=== PATIENT | male | born 1950 | race Caucasian/White ===

== ENCOUNTER 2021-02-20 12:20 | Outpatient (CLI) | payer MEDICARE, OTHER | END 2021-02-20 23:59 | disposition home or self-care (01) | LOC: COV 12:20 | PROVIDERS: ATTEND Ophthalmology | DX: Z01.812 Encounter for preprocedural laboratory examination (principal); H25.812 Combined forms of age-related cataract, left eye; Z20.822 Contact with and (suspected) exposure to COVID-19 ==

== ENCOUNTER 2021-02-23 07:55 | Day surgery (SDC) | payer MEDICARE, OTHER ==
[~2021-02-23 07:55] MED LIST: CYCLOPENTOLATE 1% OPHTH DROPS 2 ML ONE; KETOROLAC 0.45% OPHTH DROPS ONE; PHENYLEPHRINE 2.5% OPHTH 2 ML DROPS ONE; PROPARACAINE 0.5% OPHTH DROPS 15 ML ONE
[2021-02-23] MEDS ORDERED: LACTATED RINGERS 500 ML IV ONE (08:22)
--- NOTE | 2021-02-23 09:05 | ANESTHESIA ---
Pre-Anesthesia VS, & Labs - Diagnosis left eye cataract - Procedure left CATIOL Vital Signs: Temp Pulse Resp BP Pulse Ox 36.2 C L 51 L 18 118/68 100 02/23/21 08:23 02/23/21 08:23 02/23/21 08:23 02/23/21 08:23 02/23/21 08:23 Height: 5 ft 8 in Weight (kg): 69.1 kg Body Mass Index: 23.1 BMI Classification: Healthy weight - NPO >8 hours - Lab Results Lab results reviewed: Yes Home Medications and Allergies Allergies/Adverse Reactions: Allergies Allergy/AdvReac Type Severity Reaction Status Date / Time No Known Drug Allergies Allergy Verified 02/22/21 14:52 Anes History & Medical History - Anesthetic History Anesthesia Complications: reports: No previous complications Family history of Anesthesia Complications: Denies Family history of Malignant Hyperthermia: Denies - Medical History Cardiovascular: reports: None Pulmonary: reports: Sleep apnea Urinary: reports: Benign prostate hypertrophy - Surgical History Urologic: reports: Prostatic surgery Exam General: Alert, Oriented x3, Cooperative, No acute distress Dental: WNL Mouth Openin Fingerbreadth Neck Mobility: Normal Mallampati classification: II Respiratory: Lungs clear, Normal breath sounds, No respiratory distress, No accessory muscle use Cardiovascular: Regular rate, Normal S1, Normal S2, No murmurs Plan Anesthesia Type: MAC Consent for Procedure(s) Verified and Reviewed: Yes Code Status: Attempt Resuscitation ASA classification: 2-Mild systemic disease Is this case an emergency?: No
[2021-02-23] MEDS ORDERED: MIDAZOLAM 2 MG/2 ML VIAL ONE (09:12)
[2021-02-23] MEDS ORDERED: TIMOLOL 0.5% OPHTH DROPS OPTH ONE (09:36)
[2021-02-23] MEDS ORDERED: EPINEPHrine 1 MG/ML AMP IR ONE (09:36)
[2021-02-23] MEDS ORDERED: BSS/LIDOCAINE/EPINEPHRINE 1 ML SYRINGE IO ONE (09:36)
[2021-02-23] MEDS ORDERED: CHONDR SULF/HYALURONATE SYRINGE IO ONE (09:36)
[2021-02-23] MEDS ORDERED: TRIAMCIN/MOXIFLOX OPHTHALMIC 0.6 ML VIAL IO ONE ×2 (09:36→13:05)
[2021-02-23] MEDS ORDERED: BRIMONIDINE 0.2% OPHTH DROPS 5 ML OPTH ONE (09:36)
[2021-02-23] MEDS ORDERED: PROPARACAINE 0.5% OPHTH DROPS 15 ML EACHEYE ONE (09:36)
[2021-02-23] MEDS ORDERED: VANCOMYCIN OPHTHALMI 8MG/0.8ML 8 MG/0.8 ML SYRINGE IO ONE ×2 (09:37→13:05)
[2021-02-23] MEDS ORDERED: LACTATED RINGERS 400 ML IV ONE (09:55)
[2021-02-23 10:10] VITALS: BP 122/75
--- NOTE | 2021-02-23 10:22 | ANESTHESIA POST OP EVALUATION ---
Anesthesia Post Eval - Post Anesthesia Eval Vitals: Last Vital Signs Temp 36.2 C L 02/23/21 10:04 Pulse 70 02/23/21 10:04 Resp 16 02/23/21 10:04 BP 122/75 02/23/21 10:04 Pulse Ox 100 02/23/21 10:04 CV Function Including HR & BP: Stable Pain Control: Satisfactory Nausea & Vomiting: Negative Mental Status: Baseline Respiratory Status: Airway Patent Hydration Status: Satisfactory Anesthesia Complications: None
--- NOTE | 2021-02-23 12:18 | OPERATIVE REPORT ---
Operative Report - Other Other Information/Narrative: Date of Surgery: 02/23/21 Preop Dx: Visually significant cataract left eye. This was the first cataract surgery. Postop Dx: Same Procedure: Phacoemulsification with posterior chamber intraocular lens implant left eye Surgeon: Dr. Ángel Díaz Anesthesia: Monitored anesthesia care Complications: None Operative Indications: This is a 70-year-old M with progressive vision loss in the left eye due to 3+ nuclear sclerotic and vacuolar cataract. Best corrected visual acuity was 20/30 with glare to 20/100 vision in the left eye. Indications for surgery were: - Overall decrease in vision - Difficulty seeing words, closed captions, or game scores on TV - Difficulty seeing street signs - Difficulty driving at night because of headlights from other vehicles - Difficulty with glare or bright lights in any situation The patient was consented at length concerning the risks and benefits of cataract surgery after which the patient expressed a desire to proceed with surgery. Operative Procedure: The patient was taken into OR#3 and placed under monitored anesthesia care. A surgical time-out was conducted confirming correct patient, correct procedure, and correct surgical site. The patient was given topical anesthesia and then prepped and draped in the usual sterile fashion. The eye was entered at the 6 and 3 oclock positions. Intracameral Shugarcaine was injected into the anterior chamber followed by a dispersive viscoelastic. A continuous-tear curvilinear capsulorhexis was performed. The nucleus was hydrodissected and phacoemulsified. The cortex was evacuated using automated infusion and aspiration. A cohesive viscoelastic was injected into the capsular bag and a 18.5 diopter intraocular lens was inserted into the bag. Infusion and aspiration were used to evacuate the viscoelastic materials from the eye. The wounds were hydrated and the eye inflated to physiologic pressure using balanced salt solution. Approximately 0.25ml of a mixture of triamcinolone and moxifloxacin was injected trans-sclerally into the vitreous in the inferotemporal quadrant using a 30 gauge cannula. An additional 0.55ml of a mixture of triamcinolone, moxifloxacin, and vancomycin was injected subconjunctivally in the superior quadrant for infection and inflammation prophylaxis. Wound integrity was checked with Weck-Jolene sponges. The patient was taken from the operating room in good condition and given post-op instructions.
--- NOTE | 2021-02-23 12:21 | OPERATIVE REPORT ---
Operative Report - Other Other Information/Narrative: Date of Surgery: 02/23/21 Preop Dx: Visually significant cataract right eye. Cataract surgery was performed in the left eye on 01/12/21. Postop Dx: Same Procedure: Phacoemulsification with posterior chamber intraocular lens implant right eye Surgeon: Dr. Ángel Díaz Anesthesia: Monitored anesthesia care Complications: None Operative Indications: This is a 70-year-old M with progressive vision loss in the right eye due to 4+ nuclear sclerotic and 1+ posterior subcapsular cataract. Best corrected visual acuity was 20/50 with glare to 20/80 vision in the right eye. Indications for surgery were: - Overall decrease in vision - Difficulty seeing words on a computer screen - Difficulty reading - Difficulty seeing words, closed captions, or game scores on TV - Difficulty driving at night because of headlights from other vehicles - Difficulty with glare or bright lights in any situation The patient was consented at length concerning the risks and benefits of cataract surgery after which the patient expressed a desire to proceed with surgery. Operative Procedure: The patient was taken into OR#3 and placed under monitored anesthesia care. A surgical time-out was conducted confirming correct patient, correct procedure, and correct surgical site. The patient was given topical anesthesia and then prepped and draped in the usual sterile fashion. The eye was entered at the 6 and 3 oclock positions. Intracameral Shugarcaine was injected into the anterior chamber followed by a dispersive viscoelastic. A continuous-tear curvilinear capsulorhexis was performed. The nucleus was hydrodissected and phacoemulsified. The cortex was evacuated using automated infusion and aspiration. A cohesive viscoelastic was injected into the capsular bag and a 20.5 diopter intraocular lens was inserted into the bag. Infusion and aspiration were used to evacuate the viscoelastic materials from the eye. The wounds were hydrated and the eye inflated to physiologic pressure using balanced salt solution. Approximately 0.25ml of a mixture of triamcinolone and moxifloxacin was injected trans-sclerally into the vitreous in the inferotemporal quadrant using a 30 gauge cannula. An additional 0.55ml of a mixture of triamcinolone, moxifloxacin, and vancomycin was injected subconjunctivally in the superior quadrant for infection and inflammation prophylaxis. Wound integrity was checked with Weck-Jolene sponges. The patient was taken from the operating room in good condition and given post-op instructions.
[2021-02-23] MEDS ORDERED: TIMOLOL 0.5% OPHTH DROPS ONE (13:05)
[2021-02-23] MEDS ORDERED: BRIMONIDINE 0.2% OPHTH DROPS 5 ML ONE (13:05)
[2021-02-23] MEDS ORDERED: EPINEPHrine 1 MG/ML AMP ONE (13:05)
[2021-02-23] MEDS ORDERED: BSS/LIDOCAINE/EPINEPHRINE 1 ML SYRINGE ONE (13:05)
== END 2021-02-23 07:56 | disposition home or self-care (01) ==
LOC: SDS 07:55
PROVIDERS: ATTEND Ophthalmology
DX: H25.812 Combined forms of age-related cataract, left eye (principal); Z87.891 Personal history of nicotine dependence; G47.33 Obstructive sleep apnea (adult) (pediatric)
CPT/HCPCS: 66984; A9270; J3490; J7120

== ENCOUNTER 2021-03-23 07:45 | Day surgery (SDC) | payer MEDICARE, OTHER ==
[2021-03-23] MEDS ORDERED: TRIAMCIN/MOXIFLOX OPHTHALMIC 0.6 ML VIAL IO ONE ×2 (08:06→09:12)
[2021-03-23] MEDS ORDERED: EPINEPHrine 1 MG/ML AMP ONE (08:06)
[2021-03-23] MEDS ORDERED: BSS/LIDOCAINE/EPINEPHRINE 1 ML SYRINGE ONE (08:07)
[2021-03-23] MEDS ORDERED: BRIMONIDINE 0.2% OPHTH DROPS 5 ML ONE (08:07)
[2021-03-23] MEDS ORDERED: VANCOMYCIN OPHTHALMI 8MG/0.8ML 8 MG/0.8 ML SYRINGE IO ONE ×2 (08:07→09:12)
[2021-03-23] MEDS ORDERED: TIMOLOL 0.5% OPHTH DROPS ONE (08:07)
[2021-03-23] MEDS ORDERED: LACTATED RINGERS 1,000 ML IV ONE ×2 (08:35→09:24)
--- NOTE | 2021-03-23 08:43 | ANESTHESIA ---
Pre-Anesthesia VS, & Labs - Diagnosis R senile combined cataract - Procedure R cataract extraction w/IOL Vital Signs: Temp Pulse Resp BP Pulse Ox 36.5 C 45 L 18 103/60 99 03/23/21 08:04 03/23/21 08:04 03/23/21 08:04 03/23/21 08:04 03/23/21 08:04 Height: 5 ft 8 in Weight (kg): 68.4 kg Body Mass Index: 22.9 BMI Classification: Healthy weight - NPO >8 hours - Lab Results Lab results reviewed: Yes Home Medications and Allergies Allergies/Adverse Reactions: Allergies Allergy/AdvReac Type Severity Reaction Status Date / Time No Known Drug Allergies Allergy Verified 02/22/21 14:52 Anes History & Medical History - Anesthetic History Anesthesia Complications: reports: No previous complications Family history of Anesthesia Complications: Denies Family history of Malignant Hyperthermia: Denies - Medical History Cardiovascular: reports: None - Surgical History General: reports: Colonoscopy Eyes Ears Nose Throat (EENT): reports: Cataracts, Tonsil/Adenoidectomy Urologic: reports: Prostatic surgery Exam General: Alert, Oriented x3, Cooperative Dental: WNL Mouth Openin Fingerbreadth Neck Mobility: Normal Mallampati classification: II Thyromental Distance: 4-6 cm Respiratory: Lungs clear, Normal breath sounds Cardiovascular: Regular rate Neurological: Normal speech Mental/Cognitive Status: Alert/Oriented X3, Normal for patient Cognitive Status: Within normal limits Plan Anesthesia Type: MAC Consent for Procedure(s) Verified and Reviewed: Yes Code Status: Attempt Resuscitation ASA classification: 2-Mild systemic disease Is this case an emergency?: No
[2021-03-23] MEDS ORDERED: MIDAZOLAM 2 MG/2 ML VIAL ONE (09:00)
[2021-03-23] MEDS ORDERED: BRIMONIDINE 0.2% OPHTH DROPS 5 ML OPTH ONE (09:11)
[2021-03-23] MEDS ORDERED: TIMOLOL 0.5% OPHTH DROPS OPTH ONE (09:11)
[2021-03-23] MEDS ORDERED: EPINEPHrine 1 MG/ML AMP IR ONE (09:11)
[2021-03-23] MEDS ORDERED: CHONDR SULF/HYALURONATE SYRINGE IO ONE (09:11)
[2021-03-23] MEDS ORDERED: BSS/LIDOCAINE/EPINEPHRINE 1 ML SYRINGE IO ONE (09:12)
[2021-03-23] MEDS ORDERED: PROPARACAINE 0.5% OPHTH DROPS 15 ML EACHEYE ONE (09:12)
[2021-03-23 09:44] VITALS: BP 102/65
--- NOTE | 2021-03-23 09:47 | ANESTHESIA POST OP EVALUATION ---
Anesthesia Post Eval - Post Anesthesia Eval Vitals: Last Vital Signs Temp 36.0 C L 03/23/21 09:43 Pulse 70 03/23/21 09:43 Resp 16 03/23/21 09:43 BP 102/65 03/23/21 09:43 Pulse Ox 99 03/23/21 09:43 CV Function Including HR & BP: Stable Pain Control: Satisfactory Nausea & Vomiting: Negative Mental Status: Baseline Respiratory Status: Airway Patent Hydration Status: Satisfactory Anesthesia Complications: None
--- NOTE | 2021-03-23 11:31 | OPERATIVE REPORT ---
Operative Report - Other Other Information/Narrative: Date of Surgery: 03/23/21 Preop Dx: Visually significant cataract right eye. Cataract surgery was performed in the left eye on 02/23/21. Postop Dx: Same Procedure: Phacoemulsification with posterior chamber intraocular lens implant right eye Surgeon: Dr. Ángel Díaz Anesthesia: Monitored anesthesia care Complications: None Operative Indications: This is a 70-year-old M with progressive vision loss in the right eye due to 3+ nuclear sclerotic and trace posterior subcapsular cataract. Best corrected visual acuity was 20/50 with glare to 20/100 vision in the right eye. Indications for surgery were: - Overall decrease in vision - Difficulty seeing street signs The patient was consented at length concerning the risks and benefits of cataract surgery after which the patient expressed a desire to proceed with surgery. Operative Procedure: The patient was taken into OR#3 and placed under monitored anesthesia care. A surgical time-out was conducted confirming correct patient, correct procedure, and correct surgical site. The patient was given topical anesthesia and then prepped and draped in the usual sterile fashion. The eye was entered at the 6 and 3 oclock positions. Intracameral Shugarcaine was injected into the anterior chamber followed by a dispersive viscoelastic. A continuous-tear curvilinear capsulorhexis was performed. The nucleus was hydrodissected and phacoemulsified. The cortex was evacuated using automated infusion and aspiration. A cohesive viscoelastic was injected into the capsular bag and a 19.0 diopter intraocular lens was inserted into the bag. Infusion and aspiration were used to evacuate the viscoelastic materials from the eye. The wounds were hydrated and the eye inflated to physiologic pressure using balanced salt solution. Approximately 0.25ml of a mixture of triamcinolone and moxifloxacin was injected trans-sclerally into the vitreous in the inferotemporal quadrant using a 30 gauge cannula. An additional 0.55ml of a mixture of triamcinolone, moxifloxacin, and vancomycin was injected subconjunctivally in the superior quadrant for infection and inflammation prophylaxis. Wound integrity was checked with Weck-Jolene sponges. The patient was taken from the operating room in good condition and given post-op instructions.
== END 2021-03-23 07:46 | disposition home or self-care (01) ==
LOC: SDS 07:45
PROVIDERS: ATTEND Ophthalmology
DX: H25.811 Combined forms of age-related cataract, right eye (principal); G47.33 Obstructive sleep apnea (adult) (pediatric); Z98.42 Cataract extraction status, left eye; Z87.891 Personal history of nicotine dependence
CPT/HCPCS: 66984; A9270; J3490; J7120

== ENCOUNTER 2021-08-02 09:13 | Emergency (ER) | payer MEDICARE, OTHER ==
--- NOTE | 2021-08-02 09:32 | ED Physician Documentation ---
PD HPI CHEST PAIN - Stated complaint Stated Complaint: CHEST PX/SENT BY - Additional information Additional information: Patient is 70-year-old male referred by primary care for chest pain ongoing x1 day. Chest pain began yesterday. Does endorse for increased physical activity yesterday. States pain is primarily substernal with associated pain down the left arm. Denies episodes of previous pain. Denies any nausea, vomiting, diaphoresis, history hypertension, dyslipidemia, diabetes, relevant smoking history. Denies any recent travel, history of blood clots. Denies any illicit or recreational substance abuse. Does report takes a daily marijuana edible for relaxation. Review of Systems Ten Systems: 10 systems reviewed and negative Constitutional: denies: Fever Eyes: denies: Loss of vision Ears: denies: Loss of hearing Nose: denies: Rhinorrhea / runny nose Cardiac: reports: Chest pain / pressure. denies: Palpitations, Pedal edema, Calf pain Respiratory: denies: Dyspnea, Cough GI: denies: Abdominal Pain, Nausea, Vomiting PD PAST MEDICAL HISTORY - Past Medical History Cardiovascular: None - Past Surgical History General: Colonoscopy HEENT: Cataracts, Tonsil/Adenoidectomy - Allergies Allergies/Adverse Reactions: Allergies Allergy/AdvReac Type Severity Reaction Status Date / Time No Known Drug Allergies Allergy Verified 08/02/21 09:37 PD ED PE NORMAL - General General: Alert and oriented X 3 - HEENT HEENT: Atraumatic, PERRL, EOMI - Neck Neck: Supple, no meningeal sign, No bony TTP, No JVD - Cardiac Cardiac: RRR, No murmur, No gallop, No rub, Strong equal pulses - Respiratory Respiratory: No respiratory distress, Clear bilaterally - Abdomen Abdomen: Normal bowel sounds, Soft - Male Male : Deferred - Rectal Rectal: Deferred - Derm Derm: Normal color - Extremities Extremities: No deformity - Neuro Neuro: Alert and oriented X 3, outreach team member 2-12 intact, No motor deficit, Normal speech - Psych Psych: Normal mood Results - Vitals Vitals: Vital Signs - 24 hr 08/02/21 08/02/21 09:27 12:00 Temperature 36.8 C 36.5 C Heart Rate 60 79 Respiratory 14 24 Rate Blood Pressure 144/90 H 141/75 H O2 Saturation 98 100 Oxygen O2 Source Room air - EKG (time done) 0921 Rate: Rate (enter#) (63) Rhythm: NSR [place]: Normal Intervals: Normal [place], QRS normal. No: Prolonged QT QRS: Normal Ischemia: Normal ST segments Compare to prior EKG: Old EKG unavailable - Labs Labs: Laboratory Tests 08/02/21 08/02/21 08/02/21 09:47 09:47 09:47 WBC 4.8 RBC 4.72 Hgb 15.1 Hct 45.7 MCV 96.8 H MCH 32.0 H MCHC 33.0 RDW 12.5 Plt Count 272 MPV 9.6 Neut # (Auto) 3.0 Lymph # (Auto) 1.0 L [place] # (Auto) 0.4 Eos # (Auto) 0.3 Baso # (Auto) 0.1 Absolute Nucleated RBC 0.00 Nucleated RBC % 0.0 D-Dimer 570.5 H Sodium 136 Potassium 4.3 Chloride 101 Carbon Dioxide 27 Anion Gap 8.0 BUN 12 Creatinine 0.8 Estimated GFR (MDRD) 95 Glucose 90 Calcium 8.9 Total Bilirubin 0.8 AST 25 ALT 20 Alkaline Phosphatase 57 Troponin I High Sens Total Protein 7.3 Albumin 4.0 Globulin 3.3 Albumin/Globulin Ratio 1.2 Lipase 38 08/02/21 08/02/21 09:47 11:02 WBC RBC Hgb Hct MCV MCH MCHC RDW Plt Count MPV Neut # (Auto) Lymph # (Auto) [place] # (Auto) Eos # (Auto) Baso # (Auto) Absolute Nucleated RBC Nucleated RBC % D-Dimer Sodium Potassium Chloride Carbon Dioxide Anion Gap BUN Creatinine Estimated GFR (MDRD) Glucose Calcium Total Bilirubin AST ALT Alkaline Phosphatase Troponin I High Sens 4.1 3.9 Total Protein Albumin Globulin Albumin/Globulin Ratio Lipase PD MEDICAL DECISION MAKING - ED course Complexity details: reviewed results, d/w patient ED course: Is a 70-year-old male presenting to the emergency department with 1 day history of chest pain. Referred by primary care. Afebrile, hemodynamically stable on arrival to the emergency department. Denied any ongoing symptoms in the emergency department. Patient has minimal risk factors for coronary artery disease. Heart score less than 4. EKG as outlined above was negative for indications for acute cardiac ischemia or dysrhythmia. Initial and repeat high- sensitivity troponins were negative. Patient did have a very minimal, likely age-related elevation in D-dimer however I did elect to obtain a CT PE protocol which was negative for any intrathoracic disease. Given his overall well appearance and benign labs I will discharge at this time for follow-up with primary care as needed. Otherwise clear return precautions and follow-up instructions were given prior to discharge. Departure - Departure Disposition: 01 Home, Self Care Clinical Impression: Chest pain Instructions: ED Chest Pain NonCardiac Comments: Thank you for allowing us the opportunity to care for you today at [facility]. All of the labs performed to the emergency department you, your EKG and the CT scan of your chest were all very reassuring. Do not see any indications of injury to your heart or lungs and given that you are otherwise a an extremely healthy individual for your age you do not have many risk factors for coronary artery disease. I do want you to follow-up carefully with your primary care doctor as I do believe you would benefit from some further outpatient testing. If it anytime you have any new or worsening symptoms, including any recurrent or worsening chest pain I want you to return to the emergency department immediately for further evaluation and treatment.
[2021-08-02 09:57] LABS: BASOPHILS # (AUTO) 0.1 10^3/uL (0.0-0.1); EOSINOPHILS # (AUTO) 0.3 10^3/uL (0.0-0.7); EOSINOPHILS % (AUTO) 6.3 %; HCT - HEMATOCRIT 45.7 % (42.0-52.0); HGB - HEMOGLOBIN 15.1 g/dL (14.0-18.0); LYMPHOCYTES % (AUTO) 21.3 %; MEAN CORPUSCULAR VOLUME 96.8 fL (80.0-94.0); MEAN PLATELET VOLUME 9.6 fL (7.4-11.4); MONOCYTES # (AUTO) 0.4 10^3/uL (0.0-1.0); MONOCYTES % (AUTO) 9.2 %; PLT - PLATELET COUNT 272 10^3/uL (130-450); RED BLOOD COUNT 4.72 10^6/uL (4.70-6.10); RED CELL DISTRIBUTION WIDTH 12.5 % (12.0-15.0); WHITE BLOOD COUNT 4.8 x10^3/uL (4.8-10.8)
[2021-08-02 10:17] LABS: ALBUMIN/GLOBULIN RATIO 1.2 (1.0-2.2); BILIRUBIN,TOTAL 0.8 mg/dL (0.2-1.0); CALCIUM 8.9 mg/dL (8.5-10.3); CREATININE 0.8 mg/dL (0.6-1.2); POTASSIUM 4.3 mmol/L (3.5-5.0); TOTAL PROTEIN 7.3 g/dL (6.7-8.2)
[2021-08-02] MEDS ORDERED: SODIUM CHLORIDE 0.9% 1,000 ML IV STA (10:37)
[2021-08-02] MEDS ORDERED: IOVERSOL 320 100 ML VIAL IVP ONE ×2 (10:58→18:36)
--- NOTE | 2021-08-02 12:21 | CT Report ---
PROCEDURE: ANGIO CHEST W/WO INDICATIONS: Rule out PE CONTRAST: IV CONTRAST: Optiray 320 ml: 80 PO CONTRAST: *NO PO CONTRAST TECHNIQUE: After the administration of intravenous contrast, 2 mm axial images were acquired from the pulmonary apices to the posterior costophrenic angles during the arterial phase. In addition, 1 mm lung kernel and 5 mm soft tissue kernel reconstructions were performed. 3-dimensional coronal oblique maximum int ensity projection (MIP) reformats, 8 mm axial MIP, and 5 mm coronal and sagittal MPR reformats were t hen performed through the thorax. For radiation dose reduction, the following was used: automated exp osure control, adjustment of mA and/or kV according to patient size. COMPARISON: None. FINDINGS: Image quality: Respiratory motion is seen at the lung bases that could obscure a small peripheral pu lmonary embolus. Pulmonary arteries: Pulmonary arteries are normal in size, and demonstrate no intraluminal filling d efects to suggest central pulmonary embolism. Lungs and pleura: There is mild biapical pleural-parenchymal scarring. A nonspecific 3 mm nodule is s een in the left upper lobe (98/6) that is most likely benign given its size. No acute pulmonary conso lidation is seen. No pleural effusions or pneumothorax. Central and peripheral airways are patent. Mediastinum: Heart size is normal, without pericardial effusion. No mediastinal or hilar adenopathy . Thoracic aorta is normal in caliber and enhancement. Esophagus is normal in caliber, without hiat al hernia. Bones and chest wall: No suspicious bony lesions. Ribs and thoracic spine appear intact throughout. No axillary or supraclavicular adenopathy. The thyroid is normal in size. Abdomen: Visualized upper abdominal solid organs appear normal in the early arterial phase of enhanc ement. IMPRESSION: No acute pulmonary embolus. No acute abnormality is seen in the chest. Reviewed by: Aram Islas MD on 08/02/2021 12:20 PM PST Approved by: Aram Islas MD on 08/02/2021 12:20 PM PST Station ID: [id number]
[2021-08-02 12:33] VITALS: BP 141/75
== END 2021-08-02 13:00 | disposition home or self-care (01) ==
LOC: ED 09:13
DX: R07.9 Chest pain, unspecified (principal)
CPT/HCPCS: 36415; 71275; 80053; 83690; 84484; 85025; 85379; 93005; 99282; 99284; Q9967

== ENCOUNTER 2021-11-28 07:51 | Outpatient (CLI) | payer MEDICARE, OTHER ==
--- NOTE | 2021-11-28 08:32 | CARDIAC PROCEDURE NOTE ---
Stress Test Report Service Date: 11/28/21 Service Time: 08:00 Ordering Provider: Pam Castillo NP Indication for Test: Assess chest discomfort. Significant Medical History: Rey is referred for an exercise treadmill test today to assess intermittent episodes of chest pain, possibly dating as far back as 2 years. [facility] after reporting several hours of chest discomfort to his primary provider who referred him in. At that time he endorsed discomfort in the setting of increased psychosocial stress and possibly increased physical activity, with some radiation to his left arm, th ough he denied increased dyspnea, diaphoresis or GI upset. At that Emergency Department visit his EKG did not appear ischemic and troponins were negative. A D-dimer was elevated and a CT angio of the chest was negative for pulmonary embolism. Since that evaluation he has remained in his state of good health with usual physical activity. He walks 4 to 5 miles every day on a route that includes some hills, which do not pose a significant challenge. He lives on a 13 [place] property that he maintains in all aspects, without a decrement in his ability to be so active. He cannot recall having chest pain over the last several weeks, though does remember having it intermittently in the past. Cardiac Risk Factors: Positive for hyperlipidemia (untreated, current values not available) as well as history of mild atherosclerosis in his mother and heart failure in his father. Negative for hypertension, diabetes and significant tobacco smoking history Type of Stress Test: Exercise Treadmill Test (ETT) Procedure: -Exercise Treadmill Test- After signing informed consent, the patient performed treadmill exercise using a Doug protocol. The patient exercised for 7 minutes 34 seconds and achieved a peak heart rate of 141 (95 percent predicted maximum heart rate for age), and an estimated workload of 9.5 METS. The test was terminated due to fatigue/shortness of breath. Resting heart rate: 71 Peak heart rate: 141 Normal response to exercise. Resting BP: 119/76 Peak BP: 203/70 Normal BP response to exercise. Rhythm during exercise: Sinus rhythm throughout. Symptoms: He denied experiencing any chest pain/pressure/discomfort. EKG at rest showed sinus arrhythmia with incomplete right bundle branch block pattern, with isoelectric ST segments. EKG at peak stress showed ST depression >1.0 mm in leads II, III, aVF, V4 & V5, meeting diagnostic EKG criteria for ischemia, with rapid normalization in early recovery. In Recovery heart rate and blood pressure rapidly/normally returned to baseline levels. No imaging was ordered with this stress test. I, Jose Fernandes MD, was present throughout this treadmill stress study and supervised it in its entirety. Summary: 1) Exercise tolerance modestly above average for age as evidenced by TERESITA of - 14.3%. 2) Normal resting EKG. 3) Adequate level of exercise was achieved on this treadmill stress test. 5) Ischemic changes by EKG criteria were seen at peak stress. 6) No imaging was ordered with this test. CONCLUSIONS: 1) Clinically negative study without recreation of patient's chest discomfort, with entirely favorable hemodynamic response and above average exertional tolerance for age. 2) ST depression observed, meeting diagnostic criteria for ischemia, but with reduced predictive value given other favorable exercise responses. 3) I recommend that patient be started on a starting dose of a high-potency statin taken daily for risk reduction, and that he be referred back for a repeat stress test with imaging, to further clarify the implication of his observed ST depression. These recommendations were discussed with the referring provider, JOSELINE Tidwell, on the day of the study.
== END 2021-11-28 07:52 | disposition home or self-care (01) ==
LOC: DI 07:51
PROVIDERS: ATTEND Nurse Practitioner Family
DX: R07.9 Chest pain, unspecified (principal); E78.5 Hyperlipidemia, unspecified
CPT/HCPCS: 93016; 93017; 93018

== ENCOUNTER 2021-12-08 08:52 | Outpatient (CLI) | payer MEDICARE, OTHER ==
[2021-12-08 16:02] LABS: CHOL/HDL RATIO 4.4 (<5.0); CHOLESTEROL 203 mg/dL; HDL CHOLESTEROL 46 mg/dL; LDL CHOLESTEROL,CALCULATED 149 mg/dL; LDL/HDL RATIO 3.2 (<3.6); TRIGLYCERIDES 40 mg/dL; VLDL CHOLESTEROL 8 mg/dL
== END 2021-12-08 08:53 | disposition home or self-care (01) ==
LOC: LAB.S 08:52
PROVIDERS: ATTEND Nurse Practitioner Family
DX: E78.5 Hyperlipidemia, unspecified (principal)
CPT/HCPCS: 36415; 80061; 83721

== ENCOUNTER 2021-12-19 08:50 | Outpatient (CLI) | payer MEDICARE, OTHER ==
--- NOTE | 2021-12-19 09:27 | CARDIAC PROCEDURE NOTE ---
Stress Test Report Service Date: 12/19/21 Service Time: 09:00 Ordering Provider: Pam Castillo ARNP Indication for Test: Assess chest discomfort with exercise stress myocardial perfusion imaging, after recent stand alone ETT revealing exertional ST depression. Significant Medical History: -Rey returns today for repeat exercise stress testing with myocardial perfusion imaging, after undergoing a prior ETT that was favorable from the standpoint of symptoms and hemodynamic results, but did show associated ST depression meeting criteria for inducible ischemia. That evaluation was prompted by episodic chest discomfort, possibly dating back as far as 2 years. [facility] several hours of chest discomfort. At that time he was under increased psychosocial stress and probably had had an increased physical activity level, with onset of left chest discomfort associated with radiation to his left arm, though he denied increased dyspnea, diaphoresis or GI upset. At that E.D. visit his EKG did not appear ischemic and troponins were negative. A D-dimer was elevated and a CT angio of the chest was negative for pulmonary embolism. -Since that evaluation he has remained in his state of good health with usual physical activities. He walks 4 to 5 miles every day on a route that includes some hills and which do not pose a significant challenge. He lives on a 13 [place] property that he maintains in all aspects, without a decrement in his ability to be active. He believes his last episode of chest discomfort was approximately 8 weeks ago. -Given the abnormal EKG result on the prior ETT I recommended that he initiate atorvastatin. He has not initiated the medication, but has changed his diet with and brings a document today that shows very favorable dietary content, high in vegetables grains and primarily utilizing chicken and fish for protein source, with little red meat. He had had a lipid panel in early August showing total cholesterol 216, triglycerides 65, HDLC 53, estimated LDL-C 152. After several weeks on the more restricted diet the values were repeated (on 12/08/21) showing total cholesterol now 203, triglycerides much improved at 40, HDL-C 45 and LDL-C decreased to 149. He would prefer not to initiate a statin unless there is clear consensus that this is needed. Cardiac Risk Factors: Positive for hyperlipidemia (recently prescribed atorvastatin) as well as history of mild atherosclerosis in his mother and heart failure in his father. Negative for hypertension, diabetes and significant tobacco smoking history. Type of Stress Test: ETT with Myocardial Perfusion Imaging Procedure: -Exercise Treadmill Test- After signing informed consent, the patient underwent resting SPECT imaging and then performed treadmill exercise using a Doug protocol. The patient exercised for 7 minutes 43 seconds and achieved a peak heart rate of 138 (93 percent predicted maximum heart rate for age), and an estimated workload of 9.7 METS. The test was terminated due to fatigue/shortness of breath. Resting heart rate: 69 Peak heart rate: 138 Normal response to exercise. Resting BP: 121/73 Peak BP: 214/75 Normal resting BP and exertional response to exercise. Rhythm during exercise: Sinus rhythm throughout, with rare isolated PACs. Symptoms: NO chest discomfort was reported. EKG at rest showed normal sinus rhythm, rare PAC and sinus arrhythmia, with incomplete right bundle branch block pattern. EKG at peak stress showed horizontal ST depression > 1.0 mm in leads II, III and aVF, meeting diagnostic EKG criteria for ischemia. In Recovery heart rate and blood pressures rapidly and normally returned towards resting levels. Nuclear imaging was performed at rest and with stress; image interpretation will be reported separately. Jose Peralta MD, was present throughout this treadmill stress study and supervised it in its entirety. Summary: 1) Exercise tolerance modestly above average for age as evidenced by TERESITA of - 16.3%. 2) Normal resting EKG. 3) Adequate level of exercise was achieved on this treadmill stress test. 5) ST depression meeting EKG criteria for ischemia were seen at peak stress. 6) Analysis of gated nuclear images reveals normal left ventricular size and systolic function. Preliminary/on-site review of SPECT images reveals normal perfusion of the left ventricle at rest with moderate-sized anteroseptal and small-sized anterior stress-associated defects, suggestive of inducible ischemia, implicating the left anterior descending coronary artery and possibly first diagonal branch. Formal off-site interpretation rendered by Radiologist concludes that the stress associated images are normal. See separate report for more detail. CONCLUSIONS: 1) Stable exercise time, hemodynamic and (ischemic) EKG responses compared with ETT on 11/28/21. No chest discomfort reported. 2) Discordant interpretation of stress-associated SPECT images, as elaborated above. Findings discussed with the patient and referring provider on 12/20/21, with recommendation for formal Cardiology evaluation and consideration of coronary angiography. 3) We discussed that Rey has had a favorable response to his improved diet and exercise regimen, though the biggest improvement has been in fasting triglyceride level, without so much of an effect on LDL-C. If final evaluation is negative for ischemia then he would be considered a candidate for primary prevention, for which low-dose of a potent statin would likely be most appropriate, with goal LDL-C less than 100. If there is evidence of significant CAD then more aggressive secondary prevention would be appropriate with a higher dose of statin and goal LDL-C at least less than 70 mg/dL.
--- NOTE | 2021-12-19 16:12 | Nuclear Medicine Report ---
PROCEDURE: Rest and exercise myocardial perfusion SPECT with gated imaging and ejection fraction INDICATIONS: ABN RESULTS ON ETT RADIOPHARMACEUTICAL: 10.4 mCi Tc-99m Myoview IV at rest and 35.2 mCi Tc-99m Myoview IV at peak exerc ise. [id number] was performed. TECHNIQUE: Radiopharmaceutical was injected at peak stress test, and also at rest. SPECT images wer e obtained. SPECT myocardial perfusion images were displayed in short axis, horizontal long axis, an d vertical long axis views. Gated images were reviewed using [employer] software. COMPARISON: None available. FINDINGS: Raw data: There is good myocardial labeling by radiotracer. No significant motion artifacts. Lung- to-heart ratio is 0.29 (normal is less than 0.46 for tetrafosmin tracer). Left ventricle function: Gated images demonstrate normal left ventricle wall thickening. No segment al wall motion abnormality. No transient ischemic dilation; TID is 0.84 (normal less than 1.30). Th e left ventricle resting end-diastolic volume is 78 mL. Left ventricle stress ejection fraction is 6 9%; normal values are above 45%. Myocardial perfusion: There is normal distribution of activity in the left and right ventricular kamilla cardium. No fixed or reversible perfusion defects. IMPRESSION: 1. Normal myocardial perfusion images. No perfusion defect to suggest myocardial ischemia or infarct. 2. Normal left ventricular volume and systolic function. 3. Please correlate with stress EKG result. PQRS ATTESTATIONS: Measure 322 - Is this imaging test primarily performed on a low-risk surgery patient for preoperative evaluation within 30 days preceding their low-risk non-cardiac surgery? Low-risk surgery is defined as cardiac or myocardial infarction less than 1%, including (but not limited to) endoscopic pr ocedures, superficial procedures, cataract surgery, and excisional breast surgery: Answer: No Measure 323 - Is this imaging test performed primarily for the monitoring of an asymptomatic patient who had percutaneous coronary intervention on the visit date or within 2 years of the visit date? An swer: No Measure 324 - Is this imaging test performed primarily for the initial detection and risk assessment on an asymptomatic, low coronary heart disease patient? Low CHD risk definition = clinicians should consider the maximum number of available patient factors used to estimate risk based on [place] (A TP III criteria), typically age, gender, diabetes, smoking status, and use of blood pressure medicati on, and integrate age appropriate estimates for missing elements, such as LDL or standard blood press ure. Answer: No Reviewed by: Nani Swanson MD on 12/19/2021 4:11 PM PDT Approved by: Nani Swanson MD on 12/19/2021 4:11 PM PDT Station ID: [id number]
== END 2021-12-19 08:51 | disposition home or self-care (01) ==
LOC: DI 08:50
PROVIDERS: ATTEND Nurse Practitioner Family
DX: R94.30 Abnormal result of cardiovascular function study, unspecified (principal); E78.5 Hyperlipidemia, unspecified
CPT/HCPCS: 78452; 93016; 93017; 93018; A9500

== ENCOUNTER 2022-01-22 07:07 | Outpatient (CLI) | payer MEDICARE, OTHER ==
[2022-01-22 15:31] LABS: ALBUMIN 3.4 g/dL (3.2-5.5); ALBUMIN/GLOBULIN RATIO 1.3 (1.0-2.2); ALKALINE PHOSPHATASE 58 IU/L (42-121); ALT ALANINE AMINOTRANSFERASE 19 IU/L (10-60); AST ASPARTATE AMINOTRANSFERASE 19 IU/L (10-42); BILIRUBIN,TOTAL 0.6 mg/dL (0.2-1.0); BUN - BLOOD UREA NITROGEN 14 mg/dL (6-20); CALCIUM 8.9 mg/dL (8.5-10.3); CARBON DIOXIDE - CO2 30 mmol/L (21-32); CHLORIDE 101 mmol/L (101-111); CHOLESTEROL 209 mg/dL; CREATININE 0.9 mg/dL (0.6-1.2); GFR - MDRD 83 (>89); GLUCOSE 86 mg/dL (70-100); HDL CHOLESTEROL 52 mg/dL; LDL CHOLESTEROL,CALCULATED 143 mg/dL; LDL/HDL RATIO 2.8 (<3.6); POTASSIUM 4.8 mmol/L (3.5-5.0); SODIUM 137 mmol/L (135-145); TOTAL PROTEIN 6.1 g/dL (6.7-8.2); TRIGLYCERIDES 72 mg/dL; VLDL CHOLESTEROL 14 mg/dL
== END 2022-01-22 07:08 | disposition home or self-care (01) ==
LOC: LAB.S 07:07
PROVIDERS: ATTEND Nurse Practitioner Family
DX: E78.5 Hyperlipidemia, unspecified (principal)
CPT/HCPCS: 36415; 80053; 80061; 83721